=== PATIENT | male | born 1960 | race Caucasian/White ===

== ENCOUNTER 2024-07-12 06:53 | Day surgery (SDC) | payer OTHER, SELFPAY ==
--- NOTE | 2024-07-12 | PATH_ITS ---
[facility] Accession Number: [id number] No. of containers..02 Tissue . 01 Material submitted: . PART A: rectum - RECTAL POLYP PART B: ileo-cecal valve - ILEOCECAL POLYP . 01 Diagnosis: A. RECTAL POLYP: Tubular adenoma. . B. ILEOCECAL VALVE POLYP: Tubular adenoma. MRV 07/14/2024 1252 Local . 01 Electronically signed: . Khanh Art MD, PhD, Pathologist NPI- [id number] . 01 Gross description: . A. Received in formalin with two patient identifiers and rectal polyp, is a single ojeda soft tissue fragment, 0.8 cm in greatest dimension, submitted in A1. B. Received in formalin with two patient identifiers and ileocecal polyp, is a single ojeda soft tissue fragment, 0.3 cm in greatest dimension, submitted in B1. ([id number]) /MRV 07/13/2024 1841 Local . 01 Pathologist provided ICD-10: D12.0, D12.8 . 01 CPT . 435314, 739906 Specimen Comment: A courtesy copy of this report has been sent to [phone] Performed at: [address] [facility] [facility], [place], [place] [id number] MD Harrison Saavedra MD Phone: [phone]
[2024-07-12 07:39] VITALS: BP 143/93; PULSE 71; RESP 16; TEMP 36.2; O2SAT 100
--- NOTE | 2024-07-12 08:08 | P.HP_ITS ---
History of Present Illness History of Present Illness Date Patient Seen: 07/12/24 Time Patient Seen: 08:08 Chief complaint: SDC Narrative: 63-year-old male here for screening colonoscopy. Last colonoscopy 3 years ago. He has personal history of colonic polyps and family history of colon cancer in mother. No abdominal concerns today. [facility], [facility] Family History (Updated 07/12/24 @ 08:09 by Mert Serrano MD) Mother Cancer Social History Smoking Status: Former smoker alcohol intake: never Meds Home Medications and Allergies Home Medications Medication Instructions Recorded Confirmed Type valacyclovir 1 gram tablet 2,000 mg (2 x 1 gram) PO BID #12 04/06/24 07/12/24 Rx (Valtrex) tabs Allergies Allergy/AdvReac Type Severity Reaction Status Date / Time acetaminophen [From Tylenol] AdvReac Mild Nausea Verified 07/12/24 07:33 Exam Vital Signs (past 8 hours): - 07/12/24 07:39 Temperature 97.2 F L Pulse Rate 71 Respiratory Rate 16 Blood Pressure 143/93 H Pulse Oximetry 100 Oxygen Delivery Method Room Air Oxygen Delivery Method Room Air Narrative Exam Narrative: General adult man alert oriented no acute distress Chest nonlabored respiration Extremities warm well perfused Assessment & Plan Assessment and plan (1) Family history of colon cancer: Status: Acute Assessment & Plan narrative: The patient requires colorectal screening and colonoscopy is recommended. Technical details were discussed. Risks, benefits, alternatives explained. Risks including but not limited to myocardial infarction, aspiration, bleeding, pain, missed lesion, incomplete examination, need for further radiographic studies, intestinal injury, and need for major abdominal surgery were discussed. All questions were answered to their satisfaction, and they are in agreement with this plan. Time-Based Coding :: [TOTAL MINUTES] spent with patient and on the chart (including review of chart, obtaining history, exam, reviewing outside data, placing orders, documenting exam and treatment plan, and counseling patient) on [DATE].
--- NOTE | 2024-07-12 08:11 | P.OP.COLON_ITS ---
Operative Date/Time/Diagnoses Date of procedure: 07/12/24 Time of procedure: 08:11 Pre-op diagnosis: Personal history of colonic polyps Family history of colon cancer Procedure & Clinicians Study performed: Screening colonoscopy Same procedure as scheduled: Yes Indications: Personal history of colonic polyps Family history of colon cancer Surgeon: Mert Serrano Procedure Notes Procedure in detail: The history and physical was performed/updated and the patient is ASA class is 2. The procedure was discussed in detail with the patient. Potential risks complications including infection, bleeding, missed diagnosis, perforation, need for surgery, and were explained. Their questions were answered and informed consent was obtained. Patient was brought to the procedure room and placed standard monitoring equipment. The patient's vital signs were monitored continuously throughout the entire procedure. Prior to starting time-out was performed. The patient was placed in the left lateral recumbent position. Procedural sedation was administered by anesthesia. Examination began with a thorough inspection of the perianal area there was no evidence of fissures, fistulae, external hemorrhoids or cutaneous malignancy. The colonoscopy scope was then placed into the anal canal and was advanced to the cecum, which was identified by the ileocecal valve, the appendiceal orifice and the confluence of the taenia. The scope was then slowly withdrawn examining colon thoroughly in all directions, irrigating it of any residual stool. The scope was retroflexed within the rectum The patient tolerated the procedure well. They will be discharged once criteria are met. The prep was of fair quality. The withdrawl time was 7 minutes. FINDINGS * Rectal polyp 5 mm removed with cold snare * Ileocecal valve polyp 1-2 mm removed with biopsy forceps * Internal hemorrhoids Specimen(s): other (Ileocecal polyp, rectal polyp) Impression: Colonic polyp x2 Post-procedure Recommendations: Colonoscopy in 5 years Disposition: same day surgery
[2024-07-12 08:38] VITALS: BP 105/68; PULSE 68; RESP 18; TEMP 36.8; O2SAT 92
[2024-07-12 08:43] VITALS: BP 107/73; PULSE 75; RESP 16; O2SAT 92
[2024-07-12 08:48] VITALS: BP 101/83; PULSE 90; RESP 18; TEMP 36.3; O2SAT 97
[2024-07-12 08:53] VITALS: BP 112/81; PULSE 76; RESP 16; O2SAT 97
== END 2024-07-12 09:07 | disposition home or self-care (01) ==
PROVIDERS: PCP Family Medicine; Referring Provider Surgery; Visit Provider Surgery
PROC: 0DJD8ZZ Inspection of Lower Intestinal Tract, Via Natural or Artificial Opening Endoscopic (ICD-10-PCS; CPT 45378; principal; 2024-07-12 08:15)
DX: Z12.11 Encounter for screening for malignant neoplasm of colon (principal); Z86.0100 Personal history of colon polyps, unspecified; Z80.0 Family history of malignant neoplasm of digestive organs; K64.8 Other hemorrhoids; D12.8 Benign neoplasm of rectum; D12.0 Benign neoplasm of cecum
CPT/HCPCS: 45385; 45380; J2704